=== PATIENT | male | born 1960 | race African-American/Black ===

== ENCOUNTER 2019-12-28 11:03 | Outpatient (CLI) | payer OTHER ==
--- NOTE | 2019-12-28 11:22 | RAD ---
XR Knee Rt 2 View HISTORY: Right knee pain. Disability exam FINDINGS: No fracture or dislocation is identified. No joint effusion is seen.
--- NOTE | 2019-12-28 11:23 | RAD ---
XR Knee Lt 2 View HISTORY: Left knee pain. Disability exam FINDINGS: No fracture or dislocation is identified.No joint effusion is seen.
== END 2019-12-28 11:04 | disposition home or self-care (01) ==
LOC: BICRAD 11:03
PROVIDERS: ATTEND Internal Medicine
DX: Z02.71 Encounter for disability determination (principal)